=== PATIENT | female | born 1980 | race Caucasian/White ===

== ENCOUNTER 2016-06-28 13:02 | Emergency (ER) | payer MEDICAID ==
[2016-06-28] MEDS ORDERED: IPRATROPIUM/ALBUTEROL 3 ML DEYVIAL IH ONE (13:52)
[2016-06-28] MEDS ORDERED: NS 1,000 ML IV ONE (13:52)
--- NOTE | 2016-06-28 14:45 | EDPHY ---
H & P Stated Complaint: SOB, fevers for 2 weeks. Time Seen by Provider: 06/28/16 13:33 HPI/ROS: Chief complaint: Cold symptoms History of present illness: This is a 35-year-old female who presents to the emergency department for cold symptoms. Patient reports persistent cough, trouble breathing and fevers. She reports symptoms have been intermittent. She first noticed symptoms last February. They lasted for a number of months. She was followed by her primary care doctor and treated with albuterol nebulizer. Symptoms appeared to resolved. However over the last few weeks symptoms have again returned. She is again following with her primary care doctor and using nebulized albuterol. In fact she saw her primary care doctor this last Tuesday. She reports she had blood studies obtained which were normal. In addition to the nebulizer her doctors placed her on azithromycin-she is on day 2.. She was requested to get a chest x-ray. She presents here for further evaluation and care. She denies other associated signs or symptoms including no chest pain, no pain or swelling in the legs, no rash. Review of systems: A 10 point review of systems was obtained and other than described above was negative - Personal History LMP (Females 10-55): Over 28 Days Ago Current Tetanus Diphtheria and Acellular Pertussis (TDAP): Yes Tetanus Vaccine Date: 09/2010 - Medical/Surgical History Hx Asthma: No Hx Chronic Respiratory Disease: No Hx Diabetes: No Hx Cardiac Disease: No Hx Renal Disease: No Hx Cirrhosis: No Hx Alcoholism: Yes Hx HIV/AIDS: No Hx Splenectomy or Spleen Trauma: No Other PMH: crohns, pancreatitis,arthritis, sz disorder. chronic pain, narcotic , alcohol abuse. surgery-tonsillectomy, wisdom teeth removal; - Social History Smoking Status: Never smoked - Physical Exam Exam: General Appearance: Alert, nontoxic. Eyes: Pupils equal and round no pallor or injection. ENT, Mouth: Mucous membranes moist. Tympanic membranes, external auditory canals, external ears and surrounding soft tissue including over the mastoids are unremarkable. Nasopharynx is not injected. There is no rhinorrhea. Oropharynx is not injected. There is no edema. There is no exudate. There is no asymmetry. The uvula is midline. No elevation of the tongue. There is no hoarseness, no drooling, no trismus, no stridor. Respiratory: Patient talking in full sentences. There is no use of accessary muscles or evidence of respiratory distress. Diffuse wheezing is noted. No rhonchi or rales. Cardiovascular: Regular rate and rhythm. Gastrointestinal: Abdomen is soft and nontender, no masses, bowel sounds normal. Neurological: Alert and oriented x4. Strength and sensation intact and symmetrical. Skin: Warm and dry, no rashes. Musculoskeletal: Neck is supple nontender. Extremities are symmetrical, no erythema or edema, full range of motion. Psychiatric: Patient is oriented X 3, there is no agitation. Constitutional: Initial Vital Signs Temperature (C) 37 C 06/28/16 13:11 Heart Rate 96 06/28/16 13:11 Respiratory Rate 18 06/28/16 13:11 Blood Pressure 111/71 06/28/16 13:11 O2 Sat (%) 92 06/28/16 13:11 O2 Delivery Mode Room Air Allergies/Adverse Reactions: No Known Allergies Allergy (Unverified 08/22/13 15:30) Home Medications: Medication Instructions Recorded Herbals/Supplements -Info Only 1 ea PO DAILY 08/22/13 Acetaminophen [Tylenol 325mg (*)] 650 mg PO Q4 PRN #30 tab 08/25/13 Medical Decision Making ED Course/Re-evaluation: Patient is seen under the supervision of my secondary supervising physician Dr. Michael Sim. Patient presents to the emergency department for cold symptoms. She reports fevers, cough and intermittent trouble breathing. She has had these problems intermittently for the last few months. She is being followed closely by her primary care doctor. Her primary care doctor is currently treating her with nebulized albuterol and a Z-Bradford. Chest x-ray is obtained and largely unremarkable. Blood studies have been ordered but she has declined as she recently had them and reports they were normal. She is given a DuoNeb given the wheezing noted in the emergency room. I have discussed with her to continue nebulizers at home and finish the Z-Bradford. I do not believe further emergency department intervention or inpatient management is necessitated at this time. She is asked to continue following with her primary care doctor. Strict return precautions are given. Patient voiced understanding and agreement with plan. Differential Diagnosis: Included but not limited to bronchitis, pneumonia, empyema, pneumothorax, unlikely PE-given length of symptoms, the lack of tachycardia or hypoxia - Data Points Medications Given: Discontinued Medications Albuterol/Ipratropium (Duoneb) 3 ml IH EDNOW ONE Stop: 06/28/16 13:53 Last Admin: 06/28/16 14:20 Dose: 3 ml Sodium Chloride (Ns) 1,000 mls @ 0 mls/hr IV ONCE ONE PRN Reason: Wide Open Stop: 06/28/16 13:53 Last Admin: 06/28/16 15:00 Dose: Not Given Departure - Departure Disposition: Home, Routine, Self-Care Clinical Impression: Cough Condition: Good Instructions: Acute Cough (ED) Additional Instructions: Follow-up with your primary care doctor this week for continued evaluation and care Continue all medications as prescribed by your primary care doctor If symptoms worsen or new symptoms develop return to the emergency department for recheck Referrals: JAKY LEWIS [Primary Care Provider] - As per Instructions
[2016-06-28 15:16] VITALS: BP 121/75; PULSE 82; RESP 16; TEMP 98.4; O2SAT 96
== END 2016-06-28 15:13 | disposition home or self-care (01) ==
DX: R05 Cough (principal)

== ENCOUNTER → 2017-11-21 | Outpatient (CLI) | payer MEDICAID | LOC: FIMAGING 13:19 | PROVIDERS: ATTEND Advanced Practice Midwife | DX: O09.522 Supervision of elderly multigravida, second trimester (principal); Z3A.20 20 weeks gestation of pregnancy ==

== ENCOUNTER → 2017-12-29 | Outpatient (CLI) | payer MEDICAID | LOC: FIMAGING 12:57 | PROVIDERS: ATTEND Advanced Practice Midwife | DX: O09.522 Supervision of elderly multigravida, second trimester (principal); O99.282 Endocrine, nutritional and metabolic diseases complicating pregnancy, second trimester; Z3A.26 26 weeks gestation of pregnancy ==

== ENCOUNTER → 2018-01-30 | Outpatient (CLI) | payer MEDICAID | LOC: FIMAGING 13:49 | PROVIDERS: ATTEND Advanced Practice Midwife | DX: O99.613 Diseases of the digestive system complicating pregnancy, third trimester (principal); O99.343 Other mental disorders complicating pregnancy, third trimester; O99.513 Diseases of the respiratory system complicating pregnancy, third trimester; O09.523 Supervision of elderly multigravida, third trimester; K50.90 Crohn's disease, unspecified, without complications; J45.909 Unspecified asthma, uncomplicated; F41.9 Anxiety disorder, unspecified; Z79.899 Other long term (current) drug therapy; Z3A.30 30 weeks gestation of pregnancy ==

== ENCOUNTER → 2018-03-02 | Outpatient (CLI) | payer MEDICAID | LOC: FIMAGING 14:59 | PROVIDERS: ATTEND Advanced Practice Midwife | DX: O09.523 Supervision of elderly multigravida, third trimester (principal); Z3A.35 35 weeks gestation of pregnancy ==

== ENCOUNTER 2018-03-21 15:15 | Observation (INO) | payer MEDICAID | END 2018-03-21 17:30 | disposition home or self-care (01) | LOC: FLD 15:15 | PROVIDERS: ADMIT Advanced Practice Midwife; ATTEND Advanced Practice Midwife | DX: O76 Abnormality in fetal heart rate and rhythm complicating labor and delivery (principal); O09.523 Supervision of elderly multigravida, third trimester; Z3A.37 37 weeks gestation of pregnancy | CPT/HCPCS: 59025; 76816; G0378 ==

== ENCOUNTER 2018-04-03 16:11 | Observation (INO) | payer MEDICAID ==
--- NOTE | 2018-04-03 16:56 | PDGENHP ---
History and Physical History and Physical: Care: [facility] HPI: Rhina Dick is a 37 yo with IUP@39-4 weeks that presents to L&D to L& D for NST and BRANDI 2/2 crohns disease, subutex use. She denies any contractions, LOF, VB. She reports +FM. EDC: 04/06/18 which is based on Ultrasound at 8 weeks. Her is complicated by: crohn's disease, AMA, h/o abuse, asthma, h/o addiction (on subutex), BMI 16, anemia Review of Systems: Constitutional: Denies any fever, chills, or fatigue HEENT: denies any visual changes, difficulty swallowing, hearing loss Cardiovascular: Denies any chest pain, palpitations, leg swelling Respiratory: denies any cough, wheezing, or shortness of breathe GI: Denies any nausea, vomiting, diarrhea, constipation : denies any dysuria, urgency, frequency, vaginal bleeding Musculoskeletal: denies any muscle or bone pain Skin: denies any rashes Neuro: denies any headache, seizures, lightheadedness, dizziness, or loss of consciousness Psychiatric: denies any depression, anxiety, or SI/HI thoughts HISTORY: Previous OB history: x2 Past medical history: crohns, h/o abuse, asthma, h/o addiction (on subutex), anemia Past surgical history: tonsillectomy, oral surgery Social: Denies any alcohol, tobacco, or drug use. Family history: Not relevant Medications: PNV, subutex, ferrous sulfate, albuterol, pulmicort, B12, Klonopin Allergies (list reaction): NKDA LABS: Rh: A+ ABS: Neg Rubella: Non Immune HbsAg: NR HIV: NR VDRL: NR 1hr: 74 GC: Neg Chlamydia: Neg Pap: Normal GBS: negative BMI: (prepreg)16 PHYSICAL EXAM: Constitutional: WN, A&Ox3 HEENT: normocephalic atraumatic, supple Skin: Warm, dry, intact Heart: RRR, no murmur Chest: CTA-B Abdomen: Soft, nontender, gravid SVE: 2/60/-2 Extremities: no edema, negative homans sign Neuro: grossly normal Psych: normal affect assessment: FHT baseline 130 +accels, no decels, moderate variability Contractions: toco irregular Assessment: 1) [id number] with IUP@ 39-4 2) No evidence of labor 3) GBS negative 4) Cat 1 FHR tracing 3) BRANDI 6.5cm Plan: 1) d/c home at this time 2) [facility]KC and labor prec discussed 3) keep sched appt on 04/06/18 Today's visit was approximately 45 min, of which >50% of visit 30 min, was spent face to face with pt on direct counseling/coordination of care.
== END 2018-04-03 18:15 | disposition home or self-care (01) ==
LOC: FLD 16:11
PROVIDERS: ADMIT Advanced Practice Midwife; ATTEND Advanced Practice Midwife
DX: O99.613 Diseases of the digestive system complicating pregnancy, third trimester (principal); O09.523 Supervision of elderly multigravida, third trimester; O99.343 Other mental disorders complicating pregnancy, third trimester; O99.513 Diseases of the respiratory system complicating pregnancy, third trimester; O28.9 Unspecified abnormal findings on antenatal screening of mother; K50.90 Crohn's disease, unspecified, without complications; J45.909 Unspecified asthma, uncomplicated; F41.9 Anxiety disorder, unspecified; Z79.899 Other long term (current) drug therapy; Z3A.39 39 weeks gestation of pregnancy
CPT/HCPCS: 59025; 76816; G0378

== ENCOUNTER 2018-04-04 07:49 | Inpatient (IN) | payer MEDICAID ==
[2018-04-04] MEDS ORDERED: OLIVE OIL 118 ML BTL MISC PRN (10:00)
[2018-04-04] MEDS ORDERED: OXYTOCIN/RINGERS LACTATE 1,000 ML IV PRN (10:00)
[2018-04-04] MEDS ORDERED: LR 1,000 ML IV PRN (10:00)
[2018-04-04] MEDS ORDERED: EPSOM SALT 454 GM TP PRN (10:00)
[2018-04-04] MEDS ORDERED: IBUPROFEN 600 MG TAB PO PRN ×2 (10:00→12:41)
[2018-04-04] MEDS ORDERED: MISOPROSTOL 200 MCG TAB PR PRN (10:00)
[2018-04-04] MEDS ORDERED: TERBUTALINE SULFATE 1 MG/ML VIAL IV PRN (10:00)
[2018-04-04] MEDS ORDERED: LIDOCAINE 1% 300 MG/30 ML SDV SC PRN (10:00)
[2018-04-04 10:18] LABS: PLATELET COUNT 177 10^3/uL (150-400)
--- NOTE | 2018-04-04 10:35 | PDGENHP ---
History and Physical History and Physical: Care: [facility] HPI: Rhina Dick is a 37 yo with IUP@39-5 weeks that presents to L&D to reporting strong uterine contractions. She denies any LOF, VB. She reports + FM. EDC: 04/06/18 which is based on Ultrasound at 8 weeks. Her is complicated by: crohn's disease, AMA, h/o abuse, asthma, h/o addiction (on subutex), BMI 16, anemia Review of Systems: Constitutional: Denies any fever, chills, or fatigue HEENT: denies any visual changes, difficulty swallowing, hearing loss Cardiovascular: Denies any chest pain, palpitations, leg swelling Respiratory: denies any cough, wheezing, or shortness of breathe GI: Denies any nausea, vomiting, diarrhea, constipation : denies any dysuria, urgency, frequency, vaginal bleeding Musculoskeletal: denies any muscle or bone pain Skin: denies any rashes Neuro: denies any headache, seizures, lightheadedness, dizziness, or loss of consciousness Psychiatric: denies any depression, anxiety, or SI/HI thoughts HISTORY: Previous OB history: x2 Past medical history: crohns, h/o abuse, asthma, h/o addiction (on subutex), anemia Past surgical history: tonsillectomy, oral surgery Social: Denies any alcohol, tobacco, or drug use. Family history: Not relevant Medications: PNV, subutex, ferrous sulfate, albuterol, pulmicort, B12, Klonopin Allergies (list reaction): NKDA LABS: Rh: A+ ABS: Neg Rubella: Non Immune HbsAg: NR HIV: NR VDRL: NR 1hr: 74 GC: Neg Chlamydia: Neg Pap: Normal GBS: negative BMI: (prepreg)16 PHYSICAL EXAM: Constitutional: WN, A&Ox3 HEENT: normocephalic atraumatic, supple Skin: Warm, dry, intact Heart: RRR, no murmur Chest: CTA-B Abdomen: Soft, nontender, gravid SVE: 5/90/-1 Extremities: no edema, negative homans sign Neuro: grossly normal Psych: normal affect assessment: FHT baseline 130 +accels, no decels, moderate variability Contractions: toco regular q 2 min Assessment: 1) [id number] with IUP@ 39-5 2) No evidence of labor 3) GBS negative 4) Cat 1 FHR tracing 3) BRANDI 6.5cm yesterday Plan: 1) admit for labor 2) anticipate
[2018-04-04] MEDS ORDERED: OLIVE OIL 118 ML BTL ONE (10:39)
[2018-04-04] MEDS ORDERED: LIDOCAINE 1% 300 MG/30 ML SDV ONE (10:39)
[2018-04-04] MEDS ORDERED: MISOPROSTOL 200 MCG TAB ONE (10:40)
[2018-04-04] MEDS ORDERED: OXYTOCIN 10 UNIT/ML VIAL ONE (10:40)
[2018-04-04] MEDS ORDERED: TERBUTALINE SULFATE 1 MG/ML VIAL ONE (10:40)
[2018-04-04] MEDS ORDERED: AMMONIA AROMATIC 1 EACH AMP IH ONE (10:40)
--- NOTE | 2018-04-04 12:40 | OBDEL ---
Info Type: Vaginal Presentation at Delivery: Vertex L&D Analgesia/Anesthesia Type: Nitrous GBS+: No - Hospital Course Intrapartum: 04/04/18 12:37 Progressed well to complete. Variable decels to 60-70 BPM after SROM. Good return to baseline and otherwise reassuring throughout labor. Indications for Delivery: Spontaneous Labor, SROM Vaginal Delivery - Delivery Provider Delivery Physician/CNM: Fely Bar - Labor and Delivery Onset of Contractions Date: 04/04/18 Onset of Contractions Time: 03:30 Onset of Contractions Type: Spontaneous Rupture of Membranes Date: 04/04/18 Rupture of Membranes Time: 11:07 Rupture of Membranes Type: Spontaneous Amniotic Fluid Color: Clear Dilation Complete Date: 04/04/18 Dilation Complete Time: 11:45 Placenta Delivery Date: 04/04/18 Placenta Delivery Time: 12:19 Total Hours of Labor: 8 Laceration: 2nd Degree Repair: 2-0, Chromic Vaginal Sponge Count Correct: Yes Vaginal Needle Count Correct: Yes Vaginal Sweep Performed: Yes EBL: 150 Delivery Events: Nuchal Cord Data ERIC: 04/06/18 Gestational Age: 39 week(s) and 5 day(s) Cameron Delivery Date: 04/04/18 Delivery Time: 12:12 Sex of Infant: Male Score (1 Min): 8 Score (5 Min): 9 ICD10 Worksheet Patient Problems: Problems Problem Status Onset (normal spontaneous vaginal delivery) Acute 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
[2018-04-04] MEDS: ACETAMINOPHEN 325 MG TAB PO PRN ×2 (13:23→21:27)
[2018-04-04] MEDS ORDERED: [UNRECOGNIZED DRUG - OTHER] SL SCH (20:00)
[2018-04-04] MEDS ORDERED: NALOXONE SL SCH (20:00)
[2018-04-04] MEDS ORDERED: clonazePAM 0.5 MG TAB PO SCH (21:00)
[2018-04-04] MEDS ORDERED: BUPRENORPHINE HCL 2 MG SL SCH (21:00)
[2018-04-05] MEDS: ACETAMINOPHEN 325 MG TAB PO PRN ×2 (02:58→09:41)
[2018-04-05 11:27] VITALS: BP 105/68
--- NOTE | 2018-04-05 11:56 | OBGCSDC ---
General Delivery Information - General Info : 3 Para: 3 Abortions: 0 Type: Vaginal L&D Analgesia/Anesthesia Type: Nitrous Admission Date: 04/04/18 Labs: Patient ABO/Rh A POSITIVE 04/04/18 09:50 Hct 38.3 % (38.0-47.0) 04/04/18 09:50 - Hospital Course Intrapartum: 04/04/18 12:37 Progressed well to complete. Variable decels to 60-70 BPM after SROM. Good return to baseline and otherwise reassuring throughout labor. : 04/05/18 11:54 S) Pt doing well, reports min pain and bleeding. she is ambulating and voiding without difficulty. She is . She desires discharge home today. O) VSS, afebrile constitutional: WNWF, A&Ox3 HEENT: normocephalic, atraumatic, supple Heart: RRR, No murmur Chest: CTA-B Abdomen: Soft, nontender Uterus: Firm at U-2 Lochia: Minimal rubra Perineum: Intact, healing well Extremities: Trace edema, and negative Mateo's sign Neuro: Grossly normal A) 37 year-old P 3 S/P PPD#1 P) Discharge home today Continue Pelvic rest x6wks Discussed danger signs (infection, preeclampsia, depression, heavy bleeding, etc) RTO in 2/4/6 weeks Vaginal - Delivery Provider Delivery Physician/CNM: Fely Bar - Diagnosis Labor: Spontaneous Rupture of Membranes Type: Spontaneous Amniotic Fluid Color: Clear Laceration: 2nd Degree Repair: 2-0, Chromic Delivery Events: Nuchal Cord - Delivery EBL: 150 [place] Data ERIC: 04/06/18 Gestational Age: 39 week(s) and 6 day(s) Cameron Delivery Date: 04/04/18 Delivery Time: 12:12 Sex of : Male Score (1 Min): 8 Score (5 Min): 9 Discharge Information - Discharge Information Condition: Good
== END 2018-04-05 13:38 | disposition home or self-care (01) | DRG 560 ==
LOC: FLD 07:49 → FOB 15:25 → OBSVTOIN 04-05 12:20
PROVIDERS: ADMIT Advanced Practice Midwife; ATTEND Advanced Practice Midwife
PROC: 10E0XZZ Delivery of Products of Conception, External Approach (ICD-10-PCS; principal; 2018-04-05)
PROC: 0KQM0ZZ Repair Perineum Muscle, Open Approach (ICD-10-PCS; principal; 2018-04-05)
DX: O76 Abnormality in fetal heart rate and rhythm complicating labor and delivery (principal); O70.1 Second degree perineal laceration during delivery; O99.013 Anemia complicating pregnancy, third trimester; O69.81X0 Labor and delivery complicated by cord around neck, without compression, not applicable or unspecified; O99.62 Diseases of the digestive system complicating childbirth; K50.90 Crohn's disease, unspecified, without complications; O99.324 Drug use complicating childbirth; F19.21 Other psychoactive substance dependence, in remission; Z3A.39 39 weeks gestation of pregnancy; Z37.0 Single live birth
CPT/HCPCS: J2590; J3105